=== PATIENT | female | born 1945 | race Caucasian/White ===

== ENCOUNTER 2016-04-23 19:48 | Emergency (ER) | payer MEDICARE ==
[2016-04-23] MEDS ORDERED: Aspirin 325 MG TAB ONE (20:40)
[2016-04-23] MEDS ORDERED: Metoprolol Tartrate 5 MG/5 ML VIAL ONE (20:40)
[2016-04-23] MEDS ORDERED: Metoprolol Tartrate 50 MG TAB ONE (20:40)
--- NOTE | 2016-04-23 20:52 | RAD ---
CHEST ONE VIEW 04/23/16 HISTORY: Chest pain. COMPARISON: 01/16/16. FINDINGS: The cardiac silhouette is magnified by projection. The lungs remain hyperinflated with coarsened int erstitial markings. The mediastinum is midline with aortic calcification. There are degenerative katerin nges of each shoulder. IMPRESSION: 1. COPD. 2. Atherosclerosis. POS: [facility]
[2016-04-23 21:02] LABS: #Basophils 0.1 thou/uL (0.0-0.2); #Eosinphils 0.1 thou/uL (0.0-0.7); #Lymphocytes 2.7 thou/uL (1.20-3.40); #Monocytes 0.5 thou/uL (0.11-0.59); #Neutrophils 4.5 thou/uL (1.40-6.50); %Basophils 1.3 % (0.0-1.0); %Eosinophils 1.7 % (0.0-10.0); %Lymphocytes 34.1 % (21.0-51.0); %Monocytes 6.3 % (0.0-10.0); %Neutrophils 56.7 % (42.0-75.0); Hemoglobin 15.5 g/dL (12.0-16.0); Mean Corpuscular HGB CONC 33.1 g/dL (32.0-36.0); Mean Corpuscular Hemoglobin 31.3 pg (27.0-31.0); Mean Corpuscular Volume 94.4 fl (81.0-99.0); Mean Platelet Volume 9.4 fL (7.4-10.4); Platelet Count 199 thou/uL (130-400); RBC Distribution Width 12.5 % (11.5-14.5); Red Blood Cell (RBC) Count 4.97 mill/uL (4.20-5.40); White Blood Cell (WBC) Count 7.9 thou/uL (4.8-10.8)
[2016-04-23 21:18] LABS: Anion Gap 14 mmol/L (10-20); BUN (Urea Nitrogen) 17 mg/dL (9.8-20.1); Calc. Creatinine Clearance 0 mL/min (70-130); Calcium 9.3 mg/dL (7.8-10.44); Carbon Dioxide 29 mmol/L (23-31); Chloride 101 mmol/L (98-107); Estimated GFR-MDRD 59; Glucose 83 mg/dL (83-110); Potassium 4.2 mmol/L (3.5-5.1); Sodium 140 mmol/L (136-145)
[2016-04-23 21:22] LABS: CKMB 1.6 ng/mL (0-6.6); Troponin I Less than 0.010 ng/mL (< 0.028)
== END 2016-04-23 21:45 | disposition home or self-care (01) ==
LOC: MADERS 19:48
DX: R07.89 Other chest pain (principal); I10 Essential (primary) hypertension; J44.9 Chronic obstructive pulmonary disease, unspecified; F17.210 Nicotine dependence, cigarettes, uncomplicated
CPT/HCPCS: 36415; 71010; 80048; 82553; 83880; 84484; 85025; 85379; 93005; 96374

== ENCOUNTER 2017-11-06 07:55 | Emergency (ER) | payer MEDICARE ==
--- NOTE | 2017-11-06 09:52 | RAD ---
PA CHEST AND RIGHT RIBS 3 VIEWS: HISTORY: Injury with pain. FINDINGS: Lungs appear well aerated and clear with no pneumothorax or infiltrates seen. Degenerative changes s een at both shoulders on the PA chest. No acute rib fracture identified. IMPRESSION: No acute rib abnormality identified. POS: [facility]
== END 2017-11-06 08:45 | disposition home or self-care (01) ==
LOC: MADERS 07:55
DX: S29.011A Strain of muscle and tendon of front wall of thorax, initial encounter (principal); J44.9 Chronic obstructive pulmonary disease, unspecified; F17.210 Nicotine dependence, cigarettes, uncomplicated; I10 Essential (primary) hypertension; W17.89XA Other fall from one level to another, initial encounter

== ENCOUNTER 2018-01-16 12:43 | Emergency (ER) | payer MEDICARE, OTHER ==
[2018-01-16] MEDS ORDERED: Orphenadrine Citrate 60 MG/2 ML VIAL ONE (13:23)
[2018-01-16] MEDS ORDERED: Ketorolac Tromethamine 60 MG/2 ML VIAL ONE (14:59)
--- NOTE | 2018-01-16 15:25 | RAD ---
PA AND LATERAL CHEST: COMPARISON: 01/16/2016 exam. HISTORY: Chest pain and back pain radiating to the left breast. FINDINGS: Heart size is within normal limits. There are atherosclerotic changes of the aorta. The lungs are c lear of infiltrates. There are arthritic changes of the spine and minimal scoliosis. IMPRESSION: Mild chronic-appearing lung change. No definite acute process. POS: [facility]
== END 2018-01-16 15:25 | disposition home or self-care (01) ==
LOC: MADERS 12:43
DX: M62.830 Muscle spasm of back (principal); J44.9 Chronic obstructive pulmonary disease, unspecified; F17.210 Nicotine dependence, cigarettes, uncomplicated; Z71.6 Tobacco abuse counseling
CPT/HCPCS: 71046; 93005; 96372; 99406; J1885; J2360

== ENCOUNTER 2018-02-07 09:02 | Emergency (ER) | payer MEDICARE, OTHER ==
--- NOTE | 2018-02-07 10:42 | RAD ---
PA AND LATERAL CHEST: History: Dyspnea. FINDINGS: Comparison is made with exam of 01-16-18. The heart size is normal. The aorta is tortuous. The lungs are expanded without focal areas of consol idation, pneumothorax, or pleural effusions. Mild chronic changes are stable. No degenerative changes of the spine. IMPRESSION: No radiographic evidence of acute cardiopulmonary process. POS: [facility]
== END 2018-02-07 10:40 | disposition home or self-care (01) ==
LOC: MADERS 09:02
DX: J44.1 Chronic obstructive pulmonary disease with (acute) exacerbation (principal); I10 Essential (primary) hypertension; F17.210 Nicotine dependence, cigarettes, uncomplicated
CPT/HCPCS: 71046; 87804; 93005; 94640; 94760; J7620

== ENCOUNTER 2018-02-09 09:51 | Inpatient (IN) | payer MEDICARE, OTHER ==
[~2018-02-09 09:51] MED LIST: Sodium Chloride 0.9% 100 ML BAG ONE
[2018-02-09 10:11] VITALS: BMI 24.8
[2018-02-09] MEDS ORDERED: Acetaminophen 325 MG TAB PO PRN (10:53)
[2018-02-09] MEDS ORDERED: Ondansetron ODT 4 MG TAB PO PRN (10:53)
[2018-02-09] MEDS ORDERED: Milk Of Magnesia 30 ML UDCUP PO PRN (11:05)
[2018-02-09 11:26] LABS: #Lymphocytes 0.3 thou/uL (1.20-3.40); #Monocytes 0.1 thou/uL (0.11-0.59); #Neutrophils 15.8 thou/uL (1.40-6.50); %Basophils 0.2 % (0.0-1.0); %Monocytes 0.6 % (0.0-10.0); %Neutrophils 97.2 % (42.0-75.0); Mean Corpuscular HGB CONC 33.5 g/dL (32.0-36.0); Mean Corpuscular Hemoglobin 30.8 pg (27.0-31.0); Mean Corpuscular Volume 91.8 fL (78.0-98.0); Mean Platelet Volume 8.7 fL (7.4-10.4); Platelet Count 199 thou/uL (130-400); RBC Distribution Width 12.2 % (11.5-14.5); Red Blood Cell (RBC) Count 4.87 mill/uL (4.20-5.40); White Blood Cell (WBC) Count 16.3 thou/uL (4.8-10.8)
[2018-02-09 11:38] LABS: Anion Gap 16 mmol/L (10-20); BUN (Urea Nitrogen) 27 mg/dL (9.8-20.1); Calc. Creatinine Clearance 28 mL/min (70-130); Calcium 9.7 mg/dL (7.8-10.44); Carbon Dioxide 27 mmol/L (23-31); Chloride 100 mmol/L (98-107); Estimated GFR-MDRD 30; Glucose 126 mg/dL (83-110); Magnesium 2.4 mg/dL (1.6-2.6); Potassium 4.2 mmol/L (3.5-5.1); Sodium 139 mmol/L (136-145)
[2018-02-09] MEDS ORDERED: Prevnar 13-Val Conj/PF 0.5 ML SYRINGE IM ONE (11:45)
[2018-02-09 12:04] LABS: Base Excess-Venous 3.1 mmol/L (0 (+/- 2.5)); Bicarbonate (HCO3v) 30.9 mmol/L (1.0-85.0); CO2 Tension (PvCO2) 58.6 mmHg (41.0-51.0); Calcium, Ionized 1.21 mmol/L (1.12-1.32); Hemoglobin - Calc 15.9 g/dL (12.0-18.0); O2 Tension (PvO2) 150.4 mmHg (35.0-45.0); T. Carbon Dioxide 32.7 mmol/L (1.0-85.0); vO2 Saturation-calc 99.1 % (94-98)
[2018-02-09] MEDS ORDERED: Mometasone/Formoterol 60 PUFF AER INH SCH ×3 (12:30→19:00)
[2018-02-09] MEDS: cefTRIAXone\\ROCEPHIN 1 GM in Sodium Chloride 0.9% 100 ML IVPB SCH (12:43)
--- NOTE | 2018-02-09 12:46 | RAD ---
FRONTAL VIEW CHEST: COMPARISON: Two-view chest 02/07/2018. FINDINGS: The lungs are hyperinflated. Cardiac silhouette is accentuated by the portable technique, stable. T here is a mild patchy density at the left lower lung zone. Osseous degenerative change and vascular calcifications are present. IMPRESSION: 1. Chronic obstructive pulmonary disease. 2. Mild patchy density of left lung base. Subtle area of infiltrate related to basilar pneumonia is not excluded. Alternatively, this could reflect density from overlying body wall structures. A fol lowup with 2-view chest may prove useful for further assessment. POS: [facility]
[2018-02-09] MEDS: Mometasone/Formoterol 60 PUFF AER INH SCH (19:40)
[2018-02-09] MEDS: Famotidine 20 MG TAB PO SCH (20:22)
[2018-02-09] MEDS: Diabetic Tussin 200 MG/10 ML UDCUP PO PRN (22:04)
--- NOTE | 2018-02-10 04:39 | HP ---
REASON FOR ADMISSION: Acute COPD exacerbation and hypoxia with failed outpatient treatment. HISTORY OF PRESENT ILLNESS: Ms. Jenkins is a 72-year-old female with known COPD with chronic tobacco use. The patient presented to the emergency room for shortness of breath, wheezing, and difficulty breathing. On 02/07/2018, the patient stated she had been having shortness of breath which had progressively worsened over the last 5 days. She has been having coughing spells about 5 days prior to ER visit. She denied any fever or any chest pain. The patient did have COPD exacerbation about 3 weeks ago and she was treated with antibiotics, neb treatment, steroids, and stated she felt better, but about a week ago, her granddaughter who lives with her started having URI symptoms and the COPD was exacerbated. The patient continues to smoke and she stated that she had been using albuterol intermittently and stopped her ipratropium as she felt both was too much. She does not have Advair because it was too expensive. In the emergency room, a chest x-ray was done, which was negative. EKG showed sinus rhythm. She was diagnosed with COPD exacerbation and tobacco abuse. She was given prednisone taper and doxycycline. The patient had to call back stating that she could not afford the doxycycline and her medicine was changed to Bactrim DS. The patient presents today stating she is not feeling any better. She is having severe shortness of breath with minimal exertion. She denies any fever, but complains of cough and just unable to catch her breath. In the office, O2 saturations were found to be in the 77% on Room Air. She was given neb treatment and it went up to about 87, and the decision was made to admit the patient for inpatient IV steroid treatment. When on the medical floor, the patient was resting comfortably, O2 sats on 2 liters nasal cannula increased to 93%. 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 FAMILY HISTORY: Father of [place]. Sister of heart attack. Spouse of lung cancer. Mother alive. SOCIAL HISTORY: The patient is a current smoker for several years. She smokes one to two packs of cigarettes daily. She denies any alcohol or illicit drug use. MEDICATIONS: 1. Lisinopril/hydrochlorothiazide 10/12.5 half tablet daily. 2. Bactrim 800/160 twice a day. 3. Prednisone 20 taper. 4. Albuterol inhaler and albuterol nebulizer. ALLERGIES: MORPHINE SULFATE. REVIEW OF SYSTEMS: GENERAL: The patient denies fever, complains of fatigue and generalized weakness. HEENT: No visual or hearing changes. RESPIRATORY: Dypsnea on exertion, cough, and shortness of breath. CARDIAC: Denies chest pain, leg edema, or palpitation. GI: No nausea, vomiting, abdominal pain, or diarrhea. GENITOURINARY: No dysuria, hematuria, frequency, or urgency. MUSCULOSKELETAL: Intermittent arthralgia. No joint effusion. SKIN: No rashes or pruritis. NEUROLOGIC: No focal numbness or weakness. PHYSICAL EXAMINATION: VITAL SIGNS: Temperature 96.1, pulse 80, respirations 22, O2 saturations 89% on room air, blood pressure 169/84. GENERAL: Alert, awake, and oriented x3, in mild respiratory distress. HEENT: Normocephalic, atraumatic. PERRL intact. EOM moist. Tongue, no tremors. NECK: Supple. No JVD. No bruits. CHEST: Mildly tachypneic. Nonlabored breathing. RESPIRATORY: Tight air movement, Wheezing b/l , rhonchi in left lung field base. GI: Positive bowel sounds. Nontender, nondistended. Normal bowel sounds. CARDIAC: S1 and S2. No murmurs. EXTREMITIES: No edema. No cyanosis. NEUROLOGIC: No focal deficit. Gait normal. ASSESSMENT: 1. Acute chronic obstructive pulmonary disease exacerbation. 2. Hypoxia, requiring oxygen. 3. Hypertension. 4. Chronic tobacco use. 5. Generalized weakness. PLAN: The patient will be admitted to the medical floor for acute COPD exacerbation. We will start empiric therapy with Rocephin 1 g IV daily. We will switch to oral as needed. We will start IV Solu-Medrol 60 q.8 and taper off appropriately. We will place the patient on oxygen to keep O2 saturations above 90. We will counselor dormitory the patient on tobacco use. We will monitor blood pressure and continue anti-hypertensives. We will place the patient on GI and DVT prophylaxis. We will get CBC, CMP, blood cultures, VBG, and chest x-ray. We will monitor the patient for any comorbidities that might affect her recovery. CODE STATUS: The patient is a full code. DISPOSITION: Home once stabilized. Job ID: [id number] MTDD
[2018-02-10] MEDS: Mometasone/Formoterol 60 PUFF AER INH SCH ×2 (06:04→18:01)
[2018-02-10] MEDS: Hydrochlorothiazide 25 MG TAB PO SCH (09:01)
[2018-02-10] MEDS: Famotidine 20 MG TAB PO SCH ×2 (09:01→20:20)
[2018-02-10] MEDS: Lisinopril 5 MG TAB PO SCH (09:01)
[2018-02-10] MEDS: cefTRIAXone\\ROCEPHIN 1 GM in Sodium Chloride 0.9% 100 ML IVPB SCH (11:31)
[2018-02-10] MEDS: Diabetic Tussin 200 MG/10 ML UDCUP PO PRN (15:41)
[2018-02-10] MEDS ORDERED: Guaifenesin DM 100-10/5 ML UDCUP PO PRN (22:17)
[2018-02-11] MEDS: Mometasone/Formoterol 60 PUFF AER INH SCH ×2 (06:02→19:23)
[2018-02-11] MEDS: Hydrochlorothiazide 25 MG TAB PO SCH (08:54)
[2018-02-11] MEDS: Famotidine 20 MG TAB PO SCH ×2 (08:54→20:57)
[2018-02-11] MEDS: Lisinopril 5 MG TAB PO SCH (08:54)
[2018-02-11] MEDS: cefTRIAXone\\ROCEPHIN 1 GM in Sodium Chloride 0.9% 100 ML IVPB SCH (11:42)
[2018-02-11] MEDS ORDERED: predniSONE 20 MG TAB PO SCH (13:30)
[2018-02-11] MEDS: predniSONE 20 MG TAB PO SCH (20:56)
[2018-02-12] MEDS: Mometasone/Formoterol 60 PUFF AER INH SCH (05:57)
[2018-02-12] MEDS ORDERED: predniSONE 20 MG TAB PO SCH (08:00)
[2018-02-12 08:01] VITALS: TEMP 97.9
[2018-02-12] MEDS: Hydrochlorothiazide 25 MG TAB PO SCH (08:26)
[2018-02-12] MEDS: Lisinopril 5 MG TAB PO SCH (08:26)
[2018-02-12] MEDS: Famotidine 20 MG TAB PO SCH (08:26)
[2018-02-12] MEDS: predniSONE 20 MG TAB PO SCH (08:27)
[2018-02-12 08:29] VITALS: BP 129/60
--- NOTE | 2018-02-14 08:22 | DIS ---
DATE OF ADMISSION: 02/09/2018 DATE OF DISCHARGE: 02/12/2018 DISCHARGING AND PRIMARY CARE PHYSICIAN: Mariann Saucedo MD DISCHARGE DIAGNOSES: 1. Acute chronic obstructive pulmonary disease exacerbation. 2. Hypoxia, requiring oxygen, resolved. 3. Hypertension. DISCHARGE MEDICATIONS: 1. DuoNeb 3 mL q.4 p.r.n. 2. Lisinopril/hydrochlorothiazide 10/12.5 half tab daily. 3. Bactrim DS 1 tab b.i.d. x10 days. 4. Prednisone 20 mg 2 tabs x3 days, then 1 tab x3 days. 5. Dulera 2 puffs b.i.d. 6. Acetaminophen 650 q.4 p.r.n. DISCHARGE ACTIVITY: Ad wilson as tolerated. FOLLOWUP INSTRUCTIONS: Followup with primary care physician, Dr. Saucedo, within 1 week or sooner if needed. The patient is educated on smoking cessation. The patient is educated on compliance, especially with the antibiotics, steroids, and DuoNeb. DISCHARGE DISPOSITION: Home. DISCHARGE CONDITION: Stable. BRIEF HOSPITAL COURSE: Ms. Jenkins is a 72-year-old female, who is a chronic smoker and has COPD. The patient presented to the emergency room on the 07 of February due to worsening shortness of breath and she was given some antibiotics and steroids, but the patient initially stated she could not afford antibiotics , so she called back and the doxycycline was changed to Bactrim. The patient states her condition continued to worsen and minimal exertion made her very short of breath , so she presented to my office. In the office, the patient was noted to have an oxygen saturation on a room air of 77%. DuoNeb was given and it increased to 87%, so the decision was made to admit the patient for hypoxia, IV steroids, and IV antibiotics. During the hospitalization, chest x-ray showed left lower base pneumonia and COPD. The patient was started on IV Solu Medrol and was placed on oxygen and IV Rocephin. The patient had 2 doses of the IV Rocephin and on the third day IV got infiltrated, it was tried to be restarted twice and a third time, while infiltrated again and the patient declined continuation of IV medications. So, steroid was changed to p.o. prednisone 40 b.i.d. and antibiotic was changed to Levaquin 500 daily. The patient only had 1 dose of the Levaquin and 2 doses of the steroid and she decided she wanted to go home. Throughout hospitalization, the patient continued to smoke chronically and nursing staffs and myself kept encouraging on not to, but the patient was visually agitated with this and she decided she was much better and would rather go home. The patient's O2 sats improved. On the day of discharge, oxygen saturation was 92% on room air, but with ambulation decreased to 88%, but the patient was adamant on going home. The patient was discharged home and instructed to follow up with me in 1 week. The patient was discharged home in a stable condition with family members. Total time spent including this [id number] encounter with the patient was a total of 35 minutes. Job ID: [id number] [facility] CENTERChau
== END 2018-02-12 13:55 | disposition home or self-care (01) | DRG 190 ==
LOC: MADMS 09:51
PROVIDERS: ADMIT Family Medicine; ATTEND Family Medicine
DX: J44.1 Chronic obstructive pulmonary disease with (acute) exacerbation (principal); J18.9 Pneumonia, unspecified organism; I10 Essential (primary) hypertension; F17.210 Nicotine dependence, cigarettes, uncomplicated; M19.90 Unspecified osteoarthritis, unspecified site; J44.0 Chronic obstructive pulmonary disease with (acute) lower respiratory infection; Z23 Encounter for immunization; R09.02 Hypoxemia
CPT/HCPCS: 71045; 80048; 82330; 82803; 83735; 85025; 87040; 90471; 90670; G0009; J0696; J2920; J7050; J7506; J7620